=== PATIENT | male | born 1965 | race Caucasian/White ===

== ENCOUNTER 2017-02-14 19:15 | Emergency (ER) | payer OTHER ==
[2017-02-14 20:55] LABS: HEMOGLOBIN 14.1 gm/dl (14.0-17.5); RED BLOOD COUNT 4.83 M/UL (4.20-5.50); WHITE BLOOD COUNT 8.3 K/UL (4.5-11.0)
[2017-02-14 21:25] LABS: BUN/CREATININE RATIO 9 (0-10)
== END 2017-02-15 02:35 ==
LOC: ER1 19:15
PROVIDERS: Student in an Organized Health Care Education/Training Program
DX: I63.9 Cerebral infarction, unspecified (principal); R20.0 Anesthesia of skin; E11.65 Type 2 diabetes mellitus with hyperglycemia; I10 Essential (primary) hypertension; E11.42 Type 2 diabetes mellitus with diabetic polyneuropathy; E78.5 Hyperlipidemia, unspecified; M10.9 Gout, unspecified; Z88.0 Allergy status to penicillin; Z79.84 Long term (current) use of oral hypoglycemic drugs; Z79.82 Long term (current) use of aspirin; Z79.899 Other long term (current) drug therapy
CPT/HCPCS: 36415; 70450; 71010; 80053; 81001; 82550; 82553; 83874; 84484; 85025; 85610; 85730; 87086; 96361; 96374; 99285; J2405

== ENCOUNTER 2017-05-15 09:58 | Observation (INO) | payer OTHER ==
[~2017-05-15] VITALS: Ht 172.7 cm; Wt 99.8 kg
[2017-05-15 11:23] LABS: HEMOGLOBIN 13.8 gm/dl (14.0-17.5); RED BLOOD COUNT 4.7 M/UL (4.20-5.50)
[2017-05-15 11:36] LABS: BUN/CREATININE RATIO 8 (0-10)
[2017-05-15] MEDS ORDERED: JANUVIA100 MG PO (19:52)
[2017-05-15] MEDS ORDERED: GLUCOTROL 10 MG10 MG PO (19:53)
[2017-05-15] MEDS ORDERED: LISINOPRIL10 MG PO (19:53)
[2017-05-15] MEDS ORDERED: ZYLOPRIM 100 M100 MG PO (19:53)
[2017-05-15] MEDS ORDERED: METFORMIN HCL1000 MG PO (19:54)
[2017-05-15] MEDS ORDERED: METFORMIN HCL500 MG PO (19:55)
[2017-05-15] MEDS ORDERED: ZOCOR20 MG PO (19:55)
[2017-05-15] MEDS ORDERED: TYLENOL W/CODEIN1 E1 PO (19:56)
[2017-05-15] MEDS ORDERED: NEURONTIN 400400 MG PO (19:56)
[2017-05-16] MEDS ORDERED: LISINOPRIL5 MG PO (17:23)
[2017-05-16] MEDS ORDERED: LOPRESSOR 25 MG25 MG PO (17:24)
[2017-05-16] MEDS ORDERED: NITROSTAT 0.40.4 MG SL (17:25)
[2017-05-16] MEDS ORDERED: ASPIR 8181 MG PO (17:26)
== END 2017-05-16 18:10 | disposition home or self-care (01) ==
LOC: ER1 09:58 → ZEROF 14:00 → M/S 17:00
PROVIDERS: Emergency Medicine; ADMIT Family Medicine
DX: R07.9 Chest pain, unspecified (principal); E78.5 Hyperlipidemia, unspecified; E11.9 Type 2 diabetes mellitus without complications; I10 Essential (primary) hypertension; E83.42 Hypomagnesemia; M10.9 Gout, unspecified; E66.01 Morbid (severe) obesity due to excess calories; F17.220 Nicotine dependence, chewing tobacco, uncomplicated; Z88.0 Allergy status to penicillin; Z68.33 Body mass index [BMI] 33.0-33.9, adult; Z82.49 Family history of ischemic heart disease and other diseases of the circulatory system; Z79.82 Long term (current) use of aspirin; Z79.84 Long term (current) use of oral hypoglycemic drugs; Z79.899 Other long term (current) drug therapy
CPT/HCPCS: ECHO; 36415; 71020; 80053; 80061; 82550; 82553; 82962; 83036; 83735; 83874; 83880; 84439; 84443; 84484; 85025; 93005; 93306; 99285; G0378